=== PATIENT | female | born 1950 | race Caucasian/White ===

== ENCOUNTER 2024-01-25 10:00 | Outpatient (RCR) | payer MEDICARE, BC, SELFPAY | END 2024-03-05 14:57 | disposition home or self-care (01) | LOC: HO.CR 10:00 | PROVIDERS: PCP Internal Medicine; Visit Provider Internal Medicine Cardiovascular Disease | DX: Z95.2 Presence of prosthetic heart valve (principal) | CPT/HCPCS: 93798 ==

== ENCOUNTER 2025-01-11 06:08 | Day surgery (SDC) | payer MEDICARE, BC, SELFPAY ==
--- OUTSIDE RECORDS SUMMARY | 2024-05-23 06:30 | XMS_ITS ---
Author Organization [facility] Address [address] [place] [address] Care Team Providers Care Appliance Technician Name Role Phone Case Beebe MD Primary Care Provider Unava ilable Haley Talley Unavailable [phone] Jana Lund Unavailable [phone] Encounters Encounter Location Date Provider Diagnosis [address] [address] 05/23/2024 Jana Lund Plan Of Treatment No Information Progress Notes * Micaela VENCES MDOB: (74 yo F)Acc No.[id number]:05/23/2024 Progress Notes Patient: Matias Micaela BOTELLO Provider: Valerie Lund DPM :1950 A ge:74 Y S ex:Female Date:05/23/2024 [facility] [facility] [place], [place] Pcp:Case Beebe MD Subjective: * Chief Complaints: * * Medical History: Objective: * Vitals: Assessment: Plan: * Treatment: * Images: * The named appointment provid er may or may not be the originator of this progress note, and it is not deemed complete until electronically signed by the appointment provider. Sign off status: Pending * Provider: Valerie Lund DPM Date: 0 05/23/2024 Generated for Tejal mack/Angela/eTransmitting on: 1 02:31 PM EDT
--- OUTSIDE RECORDS SUMMARY | 2024-12-11 14:31 | XMS_ITS | Patient Health Record ---
Author Organization [facility] Address [address] [place] [address] Care Team Providers Care Pilot Manager Name Role Phone Case Beebe MD Primary Care Provider Unava ilable Haley Talley Unavailable [phone] Black, Jana Unavailable [phone] Allergies Allergen (clinical drug ingredient) Drug/Non Drug Allergy documented on EMR Reaction Allergy Type Onset Date Status Trees Grass (uncoded) Unknown Allergy Active sulfamethoxazole / trimethoprim Bactrim Unknown Drug Allergy Active Dust Mites Unknown Allergy Active Mold Unknown Allergy Active Reason For Referral No Information Medications Medication SIG (Take, Route, Fr equency, Duration) Notes Start Date End Date Status Levothyroxine Sodium Active Warfarin Sodium Acti ve Vitamin B 12 Active Vitamin D3 Active Atorvastatin Calcium Active Olmesartan Medoxomil Active Spironolactone-HCTZ Active ZyrTEC Active Multivitamin Active oxyBUTYnin Active Ammonium Lactate 12 % 1 application Exte rnally to affected areas of dry skin to feet except for between the toes Twice a day; Duration: 30 days Active Omeprazole Active Social History Tobacco Use: Social History Observation Description Date Details (start date - stop date) Never Smoker NA - NA Tobacco use other than smoking: Question Answer Notes Are you an other tobacco user? No Tobacco Control (Standard) Question Answer Notes Tobacco use: Nonsmoker Additional Findings: Tobacco non-user Current no nsmoker AUDIT-C (Standard) Question Answer Notes Did you have a drink contain ing alcohol in the past year? Yes How often did you have a dri nk containing alcohol in the past year? Monthly or less (1 point) How many drinks did you have on a typical day when you were drinking in the past year? 1 or 2 drinks (0 point) How often did you have six o r more drinks on one occasion in the past year? Never (0 point) Points 1 Interpretation Negative Problems Problem Type SNOMED Code ICD Code Onset Dates Problem Status W/U Status Risk Notes Problem Acquired hammer toe of left foot (2531140134877 103) Other hammer toe(s) (acquired), left foot (M20.42) Active confirmed Vital Signs Blood pressure diastolic 75 mm Hg 05/24/2024 Height 5ft 3in in 05/24/2024 Blood pressure systolic 113 mm Hg 05/24/2024 Weight 221 lbs 05/24/2024 BMI 39.14 kg/m2 05/24/2024 Encounters Encounter Location Date Provider Diagnosis [address] [address] 05/24/2024 Haley Talley Pain in left toe(s) M79.675 ; Other hammer toe(s) (acquired), left foot M20.42 and Xerosis of skin L85.[address] [address] [facility] [address] [facility] [facility] [address] 07/04/2024 Haley Talley Assessments Encounter Date Diagnosis (ICD Code) Assessment Notes Treatment Notes Treatment Clinical Notes Section Notes 05/24/2024 Pain in left toe(s) (ICD-10 - M79.675) 05/24/2024 Other hammer toe(s) (acquired), left foot (ICD-10 - M20.42) 05/24/2024 Xerosis of skin (ICD-10 - L85.3) Plan Of Treatment No Information Insurance Providers Payer Name Payer Address Payer Phone Subscriber Number Group Number Insured Name Patient Relationship to Insured Coverage Start Date Coverage End Date Medicare National [employer] [address] [place] [phone] [id number] Micaela Vences Self - patient is the insured 6 [facility] [address] [place] [address] [phone] [id number] Micaela Self - patient is the insured Medical (General) History Medical History History ICD Code Cancer HBP Osteoporosis GERD Thyroid Vascular Phlebitis (Clots) Mumps Measles Chicken Pox Heart valve conditions/replacement CAD (Cholesterol) Sleep apnea Surgical History Surgery Date(Month/Year) tonsillectomy 1963 knee replacement 2008 right hip replacement 2016 lumpectomy, left breast 2018 valve replacement 2023
--- OUTSIDE RECORDS SUMMARY | 2024-12-11 14:32 | XMS_ITS | Patient Health Record ---
Author Organization [facility] Address [address] [place] [address] Care Team Providers Care Red Mud Thickener Operator Name Role Phone Case Beebe Primary Care Provider Edgar Meadows Unavailable [phone] Allergies Allergen (clinical drug ingredient) Drug/Non Drug Allergy documented on EMR Reaction Allergy Type Onset Date Status Dust Mites Unknown Allergy Active Dogs Unknown Allergy Active Cats Unknown Allergy Active Sulfa Unknown Drug Allergy Active clindamycin Clindamycin HCl Unknown Drug Allergy Active Mold Unknown Allergy Active Reason For Referral No Information Medications Medication SIG (Take, Route, Frequency, Duration) Notes Start Date End Date Status Omeprazole 20 MG TAKE ONE CAPSULE BY MOUTH EVERY DAY Oral for 90 Active Vitamin D 2000 Once a day Acti ve Vitamin B-12 2000 Once a day A ctive Warfarin Sodium 2.5 MG TAKE 1 TO 1&1/2 T ABLETS BY MOUTH DAILY DIRECTED BY COUMADIN CLINIC Oral for 90 Days Active Spironolactone-HCTZ 25-25 MG TAKE 1/2 TA BLET BY MOUTH DAILY Oral for 90 Days Active Multivitamin Adult A ctive ZyrTEC Allergy 10 MG 1 tablet Orally Onc e a day for 30 day(s) Active Olmesartan Medoxomil 20 MG TAKE 1 TABLET BY MOUTH EVERY DAY Oral for 90 Days Active oxyBUTYnin Chloride 5 MG TAKE ONE TABLET BY MOUTH THREE TIMES A DAY Oral for 30 Days Active Atorvastatin Calcium 20 MG Oral for 90 Days Active Levothyroxine Sodium 137 MCG Oral for 90 Days Active Immunizations Vaccine Route Administration Date Status Comme nts Influenza Unknown 11/05/2018 Administered Influenza Unknown 11/23/2023 Administered Problems Problem Type SNOMED Code ICD Code Onset Dates Problem Status W/U Status Risk Notes Problem 243173892 Encounter for screening for malignant neoplasm of colon (Z12.11) Active confirmed Problem 150131732 History of adenomatous polyp of colon (Z86.010) Active confirmed Problem Long-term current use of anticoagulant (204916433) FPC (current) use of anticoagulants (Z79.01) Active confirmed Problem 698410297 Gastroesophageal reflux disease without esophagitis (K21.9) Active confirmed Vital Signs Temperature 98.2 degrees Fahrenheit 08/08/2024 Blood pressure diastolic 01 mm Hg 08/08/2024 Height 63.5 in 08/08/2024 Blood pressure systolic 001 mm Hg 08/08/2024 Weight 209.4 lbs 08/08/2024 BMI 36.51 kg/m2 08/08/2024 Procedures Procedure Date Ordered Date Performed Result Body Sit e COLONOSCOPY 08/08/2024 N/A Encounters Encounter Location Date Provider Diagnosis [facility] [address] [place] [phone] 08/08/2024 Edgar High Gastroesophageal ref lux disease without esophagitis K21.9 ; History of adenomatous polyp of colon Z86.010 ; Encounter for screening for malignant neoplasm of colon Z12.11 and FPC (current) use of anticoagulants Z79.01 [facility] [address] [place] [phone] 09/13/2024 Edgar High Assessments Encounter Date Diagnosis (ICD Code) Assessment Notes Treatment Notes Treatment Clinical Notes Section Notes 08/08/2024 History of adenomatous polyp of colon (ICD-10 - Z86.010) Overall, Gely appears well and is not having any new or worrisome GI complaints. Her omeprazole is continuing to work well for her reflux. She is not having any significant upper GI complaints at this time. As such, I do not think she needs any further evaluation of that such as an upper endoscopy given a negative endoscopy in the past and no worrisome upper GI complaints at the present time. I did advise her to try to be careful with her diet, try to lose weight, and to continue her omeprazole. I did recommend a follow-up colonoscopy for later this year in regard to her history of tubular adenomas and her last colonoscopy being 5 years ago. We did review the rationale for that in regard to colon cancer prevention. Full consent has been taken for this, including risks of bleeding and perforation. The procedure will be done with monitored anesthesia care. She was given the below instructions regarding adjustment of her medication for the procedure as well as to speak with her appraisal analyst as to whether or not we should give her prophylactic antibiotics prior to the colonoscopy in regard to the TAVR. Given the history of the blood clots and pulmonary emboli just about 6 months ago I shall wait until the Fall before we do the colonoscopy and need to adjust her blood thinners. Gely was comfortable with this plan. Thank you again for allowing me to participate in Gely's care. I shall continue to keep you advised of her progress. 08/08/2024 Gastroesophageal reflux disease without esophagitis (ICD-10 - K21.9) Overall, Gely appears well and is not having any new or worrisome GI complaints. Her omeprazole is continuing to work well for her reflux. She is not having any significant upper GI complaints at this time. As such, I do not think she needs any further evaluation of that such as an upper endoscopy given a negative endoscopy in the past and no worrisome upper GI complaints at the present time. I did advise her to try to be careful with her diet, try to lose weight, and to continue her omeprazole. I did recommend a follow-up colonoscopy for later this year in regard to her history of tubular adenomas and her last colonoscopy being 5 years ago. We did review the rationale for that in regard to colon cancer prevention. Full consent has been taken for this, including risks of bleeding and perforation. The procedure will be done with monitored anesthesia care. She was given the below instructions regarding adjustment of her medication for the procedure as well as to speak with her appraisal analyst as to whether or not we should give her prophylactic antibiotics prior to the colonoscopy in regard to the TAVR. Given the history of the blood clots and pulmonary emboli just about 6 months ago I shall wait until the Fall before we do the colonoscopy and need to adjust her blood thinners. Gely was comfortable with this plan. Thank you again for allowing me to participate in Gely's care. I shall continue to keep you advised of her progress. 08/08/2024 Encounter for screening for malignant neoplasm of colon (ICD-10 - Z12.11) Overall, Gely appears well and is not having any new or worrisome GI complaints. Her omeprazole is continuing to work well for her reflux. She is not having any significant upper GI complaints at this time. As such, I do not think she needs any further evaluation of that such as an upper endoscopy given a negative endoscopy in the past and no worrisome upper GI complaints at the present time. I did advise her to try to be careful with her diet, try to lose weight, and to continue her omeprazole. I did recommend a follow-up colonoscopy for later this year in regard to her history of tubular adenomas and her last colonoscopy being 5 years ago. We did review the rationale for that in regard to colon cancer prevention. Full consent has been taken for this, including risks of bleeding and perforation. The procedure will be done with monitored anesthesia care. She was given the below instructions regarding adjustment of her medication for the procedure as well as to speak with her appraisal analyst as to whether or not we should give her prophylactic antibiotics prior to the colonoscopy in regard to the TAVR. Given the history of the blood clots and pulmonary emboli just about 6 months ago I shall wait until the Fall before we do the colonoscopy and need to adjust her blood thinners. Gely was comfortable with this plan. Thank you again for allowing me to participate in Gely's care. I shall continue to keep you advised of her progress. 08/08/2024 FPC (current) use of anticoagulants (ICD-10 - Z79.01) Overall, Gely appears well and is not having any new or worrisome GI complaints. Her omeprazole is continuing to work well for her reflux. She is not having any significant upper GI complaints at this time. As such, I do not think she needs any further evaluation of that such as an upper endoscopy given a negative endoscopy in the past and no worrisome upper GI complaints at the present time. I did advise her to try to be careful with her diet, try to lose weight, and to continue her omeprazole. I did recommend a follow-up colonoscopy for later this year in regard to her history of tubular adenomas and her last colonoscopy being 5 years ago. We did review the rationale for that in regard to colon cancer prevention. Full consent has been taken for this, including risks of bleeding and perforation. The procedure will be done with monitored anesthesia care. She was given the below instructions regarding adjustment of her medication for the procedure as well as to speak with her appraisal analyst as to whether or not we should give her prophylactic antibiotics prior to the colonoscopy in regard to the TAVR. Given the history of the blood clots and pulmonary emboli just about 6 months ago I shall wait until the Fall before we do the colonoscopy and need to adjust her blood thinners. Gely was comfortable with this plan. Thank you again for allowing me to participate in Gely's care. I shall continue to keep you advised of her progress. Plan Of Treatment Pending Test Test Name Order Date COLONOSCOPY 08/08/2024 Future Test Test Name Order Date COLONOSCOPY 03/19/2014 COLONOSCOPY 06/22/2019 Next Appt Details Provider Name:Edgar High , 01/11/2025 07:30:00 AM, [address] [place] [address] , [place], [place], [phone], Insurance Providers Payer Name Payer Address Payer Phone Subscriber Number Group Number Insured Name Patient Relationship to Insured Coverage Start Date Coverage End Date MEDICARE OF [place] [address] [place] [address] [id number] GELY GIVENS Self - patient is the insured 6 [facility] [address] [place], [place] [id number] [phone] [id number] GELY GIVENS Self - patient is the insured Medical (General) History Medical History History ICD Code Screening colonoscopy 03/2002 -1 small tubular adenoma removed--had a negative colonoscopy in 01/2009 and in 05/2014. Hyperlipidemia GERD-EGD in 03/2002-no esophagitis nor Ba rrett's, hiatal hernia was present HTN Depression Hypothyroidism Seasonal allergies -Dr. Bashir Breast cancer on left treate d with surgery as below with XRT--took three lymph nodes that the patient thinks were positive for malignancy. Denies SC,DM,CVA,Lung disease,renal dise ase Aortic stenosis--TAVR on 08/09/2023 at [facility] Prediabetes DVT in LE's with PE in 01/28--on Coumadi n Colonoscopy 08/2019 with 1 small tubular adenoma Surgical History Surgery Date(Month/Year) Right hip replacement - Dr. Tanner Left Lumpectomy- Dr. Minerva Drake 2018 Eye lid surgery Right knee replacement 10/2008 Left knee replacement 08/2008 Hospitalization History Reason Date(Month/Year) blood clots in legs 01/29
[2025-01-09 13:36] VITALS: BMI 36.5
--- NOTE | 2025-01-09 13:51 | HO.ANESPROP2 ---
Documented by User: Tracy Marcelino NP 01/09/25 14:06 HPI - Anesthesia Eval Consult details Narrative: 74 yr old female for colonoscopy Works as route sales delivery driver, takes walking breaks. s/p TAVR 08/2023, follows [facility] cardiology, Dr. Maharaj, last visit 02/2024, TAVR working well. H/O right sided PE, on warfarin: Saw PCP for lovenox bridge plan prior to colonoscopy H/O left breast infiltrating ductal carcinoma 2018: s/p left breast lumpectomy, sentinel node biopsy, adjuvant radiation therapy, anastrozole completed 07/2022. [facility] Past Medical History Medical History Osteopenia Osteoarthritis SHELDON (obstructive sleep apnea) Lumbar degenerative disc disease Pulmonary embolism DVT (deep venous thrombosis) Pre-diabetes Aortic stenosis Breast cancer Hypothyroid Depression HTN (hypertension) GERD (gastroesophageal reflux disease) Hyperlipidemia Surgical History Surgical History H/O colonoscopy History of total right hip replacement History of lumpectomy of left breast Hx of blepharoplasty Hx of aortic valve replacement Social History Social History Are you a primary weekend caregiver to a significant other at home: No Do you presently have visiting nurse or other home services: No Patient Tobacco Use Status: Former Tobacco user Have you been hit, kicked, punched, or otherwise hurt by someone within the past year? If so, by whom?: No Are you DNR?: No Advance Directives: No Advance Directives Information Provided: Yes Meds Allergies Allergy/AdvReac Type Severity Reaction Status Date / Time clindamycin (CLINDAMYCIN) Allergy Unknown HIVES Verified 01/11/25 07:41 Sulfa (Sulfonamide Allergy Unknown HIVES Verified 01/11/25 07:41 Antibiotics) (SULFA (SULFONAMIDE ANTIBIOTICS)) Home Medications ?Medication ?Instructions ?Recorded ?Confirmed ?Last Taken ?Type atorvastatin 20 mg tablet 20 mg PO DAILY 01/09/25 01/09/25 Unknown History cetirizine 10 mg tablet (Zyrtec) 10 mg PO DAILY 01/09/25 01/09/25 Unknown History cholecalciferol (vitamin D3) 50 50 mcg PO DAILY 01/09/25 01/09/25 Unknown History mcg (2,000 unit) capsule (Vitamin D3) cyanocobalamin (vitamin B-12) 2,000 mcg PO DAILY 01/09/25 01/09/25 Unknown History 2,000 mcg tablet,extended release (Vitamin B-12 ER) levothyroxine 137 mcg tablet 137 mcg PO DAILY 01/09/25 01/09/25 Unknown History multivitamin 1 tab PO DAILY 01/09/25 01/09/25 Unknown History olmesartan 20 mg tablet 20 mg PO DAILY 01/09/25 01/09/25 Unknown History omeprazole 20 mg capsule,delayed 20 mg PO DAILY 01/09/25 01/09/25 01/11/25 History release oxybutynin chloride 5 mg tablet 5 mg PO TID 01/09/25 01/09/25 Unknown History spironolactone 25 0.5 tab PO DAILY 01/09/25 01/09/25 Unknown History mg-hydrochlorothiazide 25 mg tablet warfarin 2.5 mg tablet 2.5 - 3.75 mg PO DAILY 01/09/25 01/09/25 01/08/25 History Exam Height,Weight and Vital Signs: Height 5 ft 3.5 in Weight 94.982 kg Narrative Narrative: ECHO 06/2024 The right ventricle is normal in size and function. Normal biatrial sizes There is a bioprosthetic valve in the aortic position, which appears to be well-positioned. There is no central or paravalvular regurgitation. No concern for bioprosthetic valve failure (V max 2.0, mean gradient 8). The inferior vena cava appears normal. There is no pericardial effusion EKG 01/2024 Sinus tachycardia with 1st degree A-V block, rate 105 Rightward axis T wave abnormality, consider anterior ischemia Documented by User: Leticia Mcwilliams MD 01/11/25 07:55 [facility] Past Medical History Medical History Osteopenia Osteoarthritis SHELDON (obstructive sleep apnea) Lumbar degenerative disc disease Pulmonary embolism DVT (deep venous thrombosis) Pre-diabetes Aortic stenosis Breast cancer Hypothyroid Depression HTN (hypertension) GERD (gastroesophageal reflux disease) Hyperlipidemia Family History Family history of problems with anesthesia: No Surgical History Surgical History H/O colonoscopy History of total right hip replacement History of lumpectomy of left breast Hx of blepharoplasty Hx of aortic valve replacement History of Problems with Anesthesia: No Social History Social History Are you a primary weekend caregiver to a significant other at home: No Do you presently have visiting nurse or other home services: No Patient Tobacco Use Status: Former Tobacco user Have you been hit, kicked, punched, or otherwise hurt by someone within the past year? If so, by whom?: No Are you DNR?: No Advance Directives: No Advance Directives Information Provided: Yes Meds Allergies Allergy/AdvReac Type Severity Reaction Status Date / Time clindamycin (CLINDAMYCIN) Allergy Unknown HIVES Verified 01/11/25 07:41 Sulfa (Sulfonamide Allergy Unknown HIVES Verified 01/11/25 07:41 Antibiotics) (SULFA (SULFONAMIDE ANTIBIOTICS)) Home Medications ?Medication ?Instructions ?Recorded ?Confirmed ?Last Taken ?Type atorvastatin 20 mg tablet 20 mg PO DAILY 01/09/25 01/09/25 Unknown History cetirizine 10 mg tablet (Zyrtec) 10 mg PO DAILY 01/09/25 01/09/25 Unknown History cholecalciferol (vitamin D3) 50 50 mcg PO DAILY 01/09/25 01/09/25 Unknown History mcg (2,000 unit) capsule (Vitamin D3) cyanocobalamin (vitamin B-12) 2,000 mcg PO DAILY 01/09/25 01/09/25 Unknown History 2,000 mcg tablet,extended release (Vitamin B-12 ER) levothyroxine 137 mcg tablet 137 mcg PO DAILY 01/09/25 01/09/25 Unknown History multivitamin 1 tab PO DAILY 01/09/25 01/09/25 Unknown History olmesartan 20 mg tablet 20 mg PO DAILY 01/09/25 01/09/25 Unknown History omeprazole 20 mg capsule,delayed 20 mg PO DAILY 01/09/25 01/09/25 01/11/25 History release oxybutynin chloride 5 mg tablet 5 mg PO TID 01/09/25 01/09/25 Unknown History spironolactone 25 0.5 tab PO DAILY 01/09/25 01/09/25 Unknown History mg-hydrochlorothiazide 25 mg tablet warfarin 2.5 mg tablet 2.5 - 3.75 mg PO DAILY 01/09/25 01/09/25 01/08/25 History Exam Airway Mallampati Class: III TM Dist: >3cm Neck ROM: Limited Heart: rrr Lungs: cta Assessment and Plan Assessment Anesthesia Assessment: Anesthesia Plan Discussed and Chart Reviewed Final Anesthetic Review Family History of Problems with Anesthesia: No History of Problems with Anesthesia: No NPO: Yes ASA Class: III Final Preanesthetic Review: No Changes in Pt Med Stat, Meds/Allgs Chart Reviewed, Consent Obtained/Reviewed and Anes Risks/Benef Reviewed Patient Risk: Intermediate Procedure Risk: Low Anesthetic Plan Anesthetic Plan: MAC: and Agree w/ Assess. and Plan Disposition: Standard PACU
[2025-01-11 06:42] VITALS: BMI 38.0
[2025-01-11] MEDS: Lactated Ringers 1,000 ML 100 ML IVCONT (06:53)
[2025-01-11 07:07] VITALS: BP 150/46; PULSE 92; RESP 18; TEMP 36.6; O2SAT 96
[2025-01-11 07:08] LABS: INTERNATIONAL NORM RATIO 1.3 (0.9-1.1); Prothrombin Time 15.8 SEC (11.2-13.5)
[2025-01-11 08:36] VITALS: BP 96/63; PULSE 84; RESP 16; TEMP 36.6; O2SAT 98
--- NOTE | 2025-01-11 08:38 | PM.OP ---
Brief Operative Note Date of Service: 01/11/25 Pre-op diagnosis: Screening Post-op diagnosis: other (Diverticulosis) Procedure: Colonoscopy to the cecum and TI Surgeon: Edgar High MD Anesthesia: MAC Was an Preparation Center Coordinator used for this Procedure?: No Estimated blood loss (mL): 0 Pathology: none sent Condition: stable Disposition: PACU
[2025-01-11 08:51] VITALS: BP 101/63; PULSE 89; RESP 13; O2SAT 98
[2025-01-11 09:06] VITALS: BP 139/72; PULSE 79; RESP 18; TEMP 36.8; O2SAT 98
--- NOTE | 2025-01-11 09:08 | OP_ITS ---
DATE OF SERVICE: 01/11/2025 SURGEON: Edgar High MD INDICATIONS: The patient presents for evaluation of personal history of tubular adenoma of the colon and colorectal cancer screening. Full consent was obtained from her for this, including risks of bleeding and perforation. PREOPERATIVE DIAGNOSIS: POSTOPERATIVE DIAGNOSIS: PROCEDURE PERFORMED: Colonoscopy to cecum and terminal ileum. ESTIMATED BLOOD LOSS: COMPLICATIONS: ANESTHESIA: Medications used, monitored anesthesia care. ASSISTANTS: SPECIMENS: PREOPERATIVE DIAGNOSES: Colorectal cancer screening and personal history of tubular adenoma of the colon. POSTOPERATIVE DIAGNOSES: Colorectal cancer screening and personal history of tubular adenoma of the colon, diverticulosis, internal hemorrhoids. DESCRIPTION OF PROCEDURE: The patient was placed in the left lateral decubitus position. The digital rectal exam revealed no abnormalities. The Olympus video pediatric colonoscope was entered into the rectum and advanced easily to the cecum. Once in the cecum I did identify normal-appearing cecal pouch with appendiceal orifice and a normal-appearing ileocecal valve. The terminal ileum was cannulated and appeared normal. Scope was withdrawn back in the colon. The entire cecum and ileocecal valve appeared normal. The scope was slowly withdrawn assessing all mucosal surfaces carefully. Preparation was excellent. I did not visualize any sign of polyps, other than several less than 5 mm hyperplastic appearing polyps in the sigmoid colon. There was no sign of any colitis nor angiodysplasia. There was a moderate amount of sigmoid diverticulosis. Given her age, the appearance of the polyps, and the fact that she has to go back on her Coumadin, I opted not to biopsy or remove the small hyperplastic appearing polyps. In the rectum, scope was retroflexed visualizing internal hemorrhoids, but no other pathology. The rectal mucosa appeared normal. The scope was straightened and withdrawn from the patient. She tolerated the procedure well and was returned to the recovery area in stable condition. IMPRESSION: 1. Diverticulosis. 2. Internal hemorrhoids. PLAN: Given today's exam findings and her age, I do not think she will need any further screening colonoscopies in the future. As such, she will see me as needed. She was advised to go back on her Coumadin and Lovenox regimen today and then be further evaluated and have the regimen adjusted per the [facility]. MD GLENDA Horta/JOSL / [id number]
== END 2025-01-11 09:35 | disposition home or self-care (01) ==
PROVIDERS: Nurse Practitioner; PCP Family Medicine; Visit Provider Internal Medicine
PROC: 0DJD8ZZ Inspection of Lower Intestinal Tract, Via Natural or Artificial Opening Endoscopic (ICD-10-PCS; CPT 45378; principal; 2025-01-11 07:30)
DX: Z12.11 Encounter for screening for malignant neoplasm of colon (principal); Z86.0101 Personal history of adenomatous and serrated colon polyps; Z79.01 Long term (current) use of anticoagulants; K64.8 Other hemorrhoids; K57.30 Diverticulosis of large intestine without perforation or abscess without bleeding
CPT/HCPCS: G0121; 36415; 85610; J2371; J2704